=== PATIENT | female | born 1960 | race Hispanic/Latino ===

== ENCOUNTER 2017-06-03 19:21 | Emergency (ER) | payer MEDICARE ==
[~2017-06-03 19:21] MED LIST: CARV25TA PO; CLON.1 PO; FERR210T PO; FOLI0.8T22 PO; INSU100V12 SQ; ISOS30TA6 PO; SEVE800T7 PO
== END 2017-06-03 23:58 | disposition home or self-care (01) ==
LOC: EDH 19:21
DX: S30.0XXA Contusion of lower back and pelvis, initial encounter (principal); I12.0 Hypertensive chronic kidney disease with stage 5 chronic kidney disease or end stage renal disease; E11.22 Type 2 diabetes mellitus with diabetic chronic kidney disease; N18.6 End stage renal disease; Z99.2 Dependence on renal dialysis; W05.0XXA Fall from non-moving wheelchair, initial encounter; Y93.89 Activity, other specified; Y92.89 Other specified places as the place of occurrence of the external cause; Y99.8 Other external cause status
CPT/HCPCS: 72192; 72220